=== PATIENT | female | born 1980 | race Caucasian/White ===

== ENCOUNTER 2018-02-10 20:29 | Emergency (ER) | payer MEDICAID ==
[2018-02-10] MEDS: IBUPROFEN 600 MG TAB PO (22:14)
[2018-02-10] MEDS: ACETAMINOPHEN 500 MG TAB PO (22:14)
[2018-02-10 22:19] LABS: URINE BLOOD (Dip) POC 2+ (NEGATIVE); URINE GLUCOSE (Dip) POC Negative (NEGATIVE); URINE KETONES (Dip) POC Negative (NEGATIVE); URINE LEUKOCYTE EST (Dip) POC 2+ (NEGATIVE); URINE NITRITE (Dip) POC Negative (NEGATIVE); URINE TOTAL PROTEIN POC Negative (NEGATIVE)
[2018-02-10] MEDS: CIPROFLOXACIN 500 MG TAB PO (22:56)
== END 2018-02-10 23:27 | disposition home or self-care (01) ==
LOC: FTE 23:27
DX: N30.00 Acute cystitis without hematuria (principal)
CPT/HCPCS: 81003; 81025; 99283